=== PATIENT | female | born 1950 | race Caucasian/White ===

== ENCOUNTER 2022-11-07 06:40 | Outpatient (CLI) | payer MEDICARE, OTHER, SELFPAY ==
--- NOTE | ~2022-11-07 | MR_ITS ---
MRI of the right shoulder Technique: Axial proton-density fat-sat images, coronal proton density fat-sat and T2 fat-sat images, and sagittal T1-weighted and T2 fat-sat images were acquired. Clinical History: Osteoarthritis Findings: There is minimal degenerative change at the AC joint. No subacromial spur. Coracoclavicular , coracoacromial, and coracohumeral ligaments are intact. There is mild to moderate tendinosis of the distal supraspinatus and infraspinatus tendons. No partia l or full-thickness tear seen. There is mild subscapularis tendinosis. Tendon of the long head of the biceps is intact. There is mild degenerative attenuation of the anteroinferior labrum. Large inferomedial humeral head osteophyte is present. 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 There are intra-articular loose bodies in the axillary pouch of the glenohumeral joint , measuring up to 1.2 cm in maximum diameter. Inferior glenohumeral ligament is intact. Small glenohu meral joint effusion present. No fluid distention of the subacromial/subdeltoid bursa. No muscle atro phy or edema. Impression: Moderate to advanced glenohumeral joint degenerative change with several loose bodies in the axillary pouch of the joint, as detailed above. Rotator cuff tendinosis without partial or full-thickness tear. Mild degenerative attenuation of the anteroinferior labrum. Reviewed, dictated and finalized at [facility]. Impression: Moderate to advanced glenohumeral joint degenerative change with several loose bodies in the axillary pouch of the joint, as detailed above. Rotator cuff tendinosis without partial or full-thickness tear. Mild degenerative attenuation of the anteroinferior labrum.
== END 2022-11-07 06:41 | disposition home or self-care (01) ==
LOC: ANHIMG 06:49
PROVIDERS: PCP Family Medicine; Visit Provider Physician Assistant
DX: M19.011 Primary osteoarthritis, right shoulder (principal); M24.011 Loose body in right shoulder; M77.8 Other enthesopathies, not elsewhere classified
CPT/HCPCS: 73221